=== PATIENT | female | born 1970 | race Caucasian/White ===

== ENCOUNTER 2018-02-08 14:57 | Emergency (ER) | payer OTHER ==
[~2018-02-08] VITALS: Ht 160 cm; Wt 68.2 kg
[2018-02-08] MEDS: ACETAMINOPHEN 500 MG TABLET PO ONE (16:18)
[2018-02-08] MEDS: POVIDONE-IODINE 10% 15 ML SOLUTION UD TP ONE (16:18)
[2018-02-08] MEDS: BACITRACIN 0.9 GM PACKET OINTMENT TP ONE (16:18)
[2018-02-08] MEDS: PERTUSS(ACELL),DIPH,TET VAC/PF 0.5 ML VIAL IM ONE (16:18)
[2018-02-08] MEDS: AMOX TR/POT CLAV 500 MG/125 MG TABLET PO ONE (16:34)
[2018-02-08 16:43] VITALS: BP 152/98
== END 2018-02-08 17:37 | disposition home or self-care (01) ==
LOC: EDUNIT# 14:57 → EMS 14:59
DX: S61.233A Puncture wound without foreign body of left middle finger without damage to nail, initial encounter (principal); Z90.710 Acquired absence of both cervix and uterus; W54.0XXA Bitten by dog, initial encounter; Y93.89 Activity, other specified; Y92.89 Other specified places as the place of occurrence of the external cause; Y99.8 Other external cause status
CPT/HCPCS: 90471; 90715